=== PATIENT | female | born 1940 | race Caucasian/White ===

== ENCOUNTER 2017-05-30 09:44 | Day surgery (SDC) | payer MEDICARE ==
[2017-05-30] VITALS (9 sets, daily range): BP systolic 121–153; BP diastolic 60–74; PULSE 78–99; RESP 13–16; O2SAT 95–98
[~2017-05-30] VITALS: Ht 156.2 cm; Wt 88.0 kg
[~2017-05-30 09:44] MED LIST: ALPR0.5T8 PO; ATOR20TA PO; AZEL50GE5 TP; CALC-682 PO; CHOL40003 PO; DESO15CR25 TOP; DICL100G8 TOPICAL; GABA-502 PO; HYDR25TA4 PO; INSLIS SUBQ; INSU100V28 SUBQ; KETACONAZOLE CREAM TP; LEVO100T6 PO; LISI-567 PO; Lactated Ringer's 1,000 ML IV SCH; TRAM-14 PO
[2017-05-30] MEDS ORDERED: Dexamethasone 4 mg/mL Inj ONE (09:45)
[2017-05-30] MEDS ORDERED: Ondansetron 2 mg/mL 2 mL Inj ONE (09:45)
[2017-05-30] MEDS ORDERED: fentaNYL-PF 50 mCg/mL 2 mL Inj ONE (09:45)
[2017-05-30] MEDS ORDERED: MetoCLOpramide 5 mg/mL 2 mL Inj ONE (09:45)
[2017-05-30] MEDS ORDERED: Lactated Ringer's 1,000 ML IV ONE (10:46)
--- NOTE | 2017-05-30 11:04 | DRSVH ---
PROCEDURE: NM SENTINEL NODE INJECTION ONLY, RIGHT BREAST RADIOPHARMACEUTICAL: 0.5 mCi Millipore filtered Tc-99m sulfur colloid. INDICATIONS: RIGHT BREAST CANCER PROCEDURE: The indications, alternatives, benefits, risks, and complications of the procedure were explained to the patient. Written informed consent was obtained and placed in the chart. The area around the nip ple was prepped and draped in a sterile fashion. Tc-99m sulfur colloid was injected in the outer edg e of the areola in the right breast. No image was obtained. IMPRESSION: Administration of radiotracer into the right breast periareolar region for intra-operati ve sentinel lymph node localization. Dictated by: Joe Abernathy M.D. on 05/30/2017 at 11:02 Approved by: Joe Abernathy M.D. on 05/30/2017 at 11:02
--- NOTE | 2017-05-30 15:01 | PCM.HPANE ---
Patient Data Date of Service: May 30, 2017 Surgeon Admitting Provider: Attending Provider:Francisco Harris MD Primary Care Physician:Other,Physician Other Provider:Marty Baig Anesthesia Reason for Visit Right Breast Dcis Ht/WT & BMI Height (Feet): 5 Height (Inches): 1.5 Weight (Kilograms): 87.996 Body Mass Index 36.00 Allergies Coded Allergies: No Known Allergies (Unverified , 04/08/17) Past Anesthesia History Anesthesia History: Denies:: Abnormal Airway, Anesthesia Reactions, Difficult Intubation, Fam Anesthesia Reaction, Fam Malignant Hypertherm, Malignant Hyperthermia Diabetes History Hx Diabetes?: Yes Type of Diabetes: Type II Glycemic Control: Insulin Dependent Current Bedside Blood Glucose: 190 MRSA MRSA: No Medications Hypertension Medication: Yes (HCTZ,LISINOPRIL) Home Meds Incl Beta Vijay: No Reported Medications Diclofenac Gel (Voltaren Gel)100 Gm Tube1 Applic TOPICAL QID #1 TUBE 05/24/17 [Ketaconazole Cream] No Conflict Check1 Applic TP BID 2%-MIX W/ DESONIDE 05/24/17 Azelaic Acid (Finacea)50 Gm Gel..gram.1 Applic TP BID 15% 05/24/17 Desonide (Desonide Cream)15 Gm Cream..g.1 Applic TOP BID #1 TUBE Ref 0 0.05%-MIX W/ KETACONAZOLE 05/24/17 Calcium Crb&Cit/D3/Min34/Jerry (Citracal + Bone Density Tablet)1 Each Tablet1 Each PO DAILY 05/24/17 Alprazolam 0.5 Mg Tablet0.5-1 Mg PO DAILY PRN For Anxiety Ref 0 05/24/17 Cholecalciferol (Vitamin D3) (Vitamin D3)4,000 Unit Capsule5,000 Unit PO DAILY 04/08/17 Gabapentin 300 Mg Dkcyvss018-513 Mg PO TID Ref 0 04/08/17 Tramadol (Ultram)50 Mg Unywag03 Mg PO q6hrs PRN Pain Ref 0 04/08/17 Insulin Human Lispro (HumaLOG U100 Insulin Vial)100 Unit/Ml Unit8-15 Unit SUBQ TIDWM Ref 0 Check blood sugars before meals and at bedtime. Use correction factor only before meals. Blood Sugar Lispro Correction: <151, 0 units; 151-175, 1 unit; 176-200, 2 units; 201-225, 3 units; 226-250, 4 units; 251-275, 5 units; 276-300, 6 units; 301-325, 7 units; 326-350, 8 units; 351-375, 9 units; 376-400, 10 units; >400, 12 units. 04/08/17 Insulin Regular, Human (HUMulin-R U100 Insulin Vial)100 Unit/1 Ml Vial26 Unit SUBQ DAILY Ref 0 04/08/17 Lisinopril 20 Mg Bwtyqq05 Mg PO DAILY Ref 0 04/08/17 Levothyroxine 100 Mcg Zfyvxf781 Mcg PO DAILY For Thyroid Replacement Ref 0 04/08/17 Hydrochlorothiazide 25 Mg Ejkboe82 Mg PO DAILY Ref 0 04/08/17 Atorvastatin (Lipitor)20 Mg Wiiuhy09 Mg PO DAILY Ref 0 04/08/17 Discontinued Reported Medications Ranitidine 150 Mg Xsepsyb958 Mg PO prn Ref 0 04/08/17 L.acidoph & Paracasei,B.lactis (Probiotic)10 Billion Cell Capsule1 Each PO DAILY 04/08/17 Cyanocobalamin (Vitamin B-12) (Vitamin B-12)1,000 Mcg Tablet1,000 Mcg PO DAILY 04/08/17 History History of ENT Problems?: No HEENT History: Denies:: Abnormal Airway Difficult Intubation Hearing Problem Sinus Problem Denture Type: None Teeth Condition: Missing Teeth Hx of Heart Problems?: Yes Cardiovascular History: Positive for:: Hypertension (HYPERLIPIDEMIA) Denies:: Chest Pain Heart Murmur Pacemaker Rheumatic Fever Thrombophlebitis Hx of Respiratory Problem?: No Respiratory History: Denies:: Asthma COPD Dyspnea Emphysema Hemoptysis Tuberculosis Use of C-PAP Machine Hx Neurologic Problems?: No Neurological History: Denies:: Alzheimer's Disease CVA Dementia Dizziness Headaches Seizures TIA Hx of GI Problems?: Yes Gastrointestinal History: Positive for:: Gastroesphageal Reflux Hx of Problems?: Yes Genitourinary History: Positive for:: Urinary Tract Infection (HX OF) Denies:: HX of Hemodialysis Kidney Stones Female Hx: Positive for:: Problems with Breasts? (S/P RT BREAST BX RT BREAST CA=CURRENT PROBLEM) Denies:: Currently (+ HRT X 10YRS) Endometriosis Pelvic Inflammatory Skin History: Positive for:: History Skin Disorders? (S/P EXC BASAL CELL CA- FACE) Denies:: Pressure Ulcers Hx Musculoskeletal Problems?: Yes Musculoskeletal History: Positive for:: Fibromyalgia Osteoarthritis Denies:: Back Injury (C/OF LOWER BACK PAIN) Joint Replacement Musculoskeletal Trauma Hx of Psycho/Social Problems?: Yes Psycho Social History: Positive for:: Anxiety Hx Depression Denies:: Bipolar Disorder Hx Surgeries?: No Hx Any Other Health Problems?: Yes Other History: Positive for:: Thyroid Disease Denies:: Cancer Endocrine Disease Hospitalization Hx Diabetes: YesBedside Blood Glucose: 190 Hx Alcohol Use: NoHx Substance Use: No Smoking Status: Unknown if Ever Smoker Have You Smoked inLast 12 mo: No Stop/Bang Treated for Sleep Apnea?: No Do You Have a CPAP Machine?: No S-Snoring: Do You Snore Loudly: No T-Tired: feel tired, fatigued: No O-Obsered: Observed not breath: No P-Blood Pressure: treated: Yes B- Body Mass Index > 35 kg/m2: Yes A- Age over 50: Yes N- Neck Large Circumference: No G- Gender Male: No JOE Total Score: 3 JOE Risk Assessment: Low Risk, <3 Yes Risk Assessment Category Category 1A: Patient has history of documented sleep apnea, and HAS NOT received any narcotic, sedative or anesthesia administration during this stay. Category 1B: Patient has history of documented sleep apnea, and HAS received any narcotic , sedative or anesthesia administration during this stay Category 2: Patient has SUSPECTED Obstructive Sleep Apnea, and HAS received any narcotic , sedative or anesthesia administration during this stay. Category 3: Patient has SUSPECTED Obstructive Sleep Apnea and HAS NOT received narcotic, sedative or anesthesia administration during this stay. Category 4: Outpatient in Procedural Areas with known sleep apnea or who screen positive for High Risk via the STOP/BANG questionnaire. Exam Exam Vital Signs Vital Signs Date Time Temp Pulse Resp B/P Pulse Ox O2 Delivery O2 Flow Rate FiO2 05/30/17 10:37 36.2 78 16 140/74 96 Room Air General Appearance: Alert, Oriented X3, Cooperative HEENT/AIRWAY: MP 3, Neck Movement (FROM, SHORT THICK), Mouth Opening (3), Other (TMD<3) Lungs: Normal Air Movement Heart: Exam Unremarkable, Regular Rate/Rhythm, Normal S1, Normal S2, No Murmurs /Rubs/Gallops Meds/Labs/Diagnostics Admission Meds Current Medications Lactated Ringer's (Lr) 1,000 ml @ ud STK-MED ONCE IV Last administered on 05/30t 10:46; Start 05/30/17 at 10:46; Stop 05/30/17 at 10:47; Status DC Bedside Blood Glucose: 190 Plan Impression Patient chart reviewed, patient interviewed and anesthestic plan with risks, benefits, and alternatives discussed, and informed consent obtained. NPO per Anesth. Guidelines: Yes ASA Physical Status: ASA3 Severe Disease Anesthetic Plan: GA Bene/Risks/Altern/Consents: Yes HP Complete Prior to Induction: Yes Salvatore Guillen MD May 30, 2017 15:01
[2017-05-30] MEDS ORDERED: Bupivacaine-MPF 0.5% W/EPI 30 mL Inj INFILTRATE ONE (15:24)
[2017-05-30] MEDS ORDERED: EPHEDrine Sulfate 50 mg/mL Inj IM PRN (16:05)
[2017-05-30] MEDS ORDERED: hydrOXYzine Inj 50 MG/1 mL SDV IM ONE (16:05)
[2017-05-30] MEDS ORDERED: Dexamethasone 4 mg/mL Inj IVPUSH PRN (16:05)
[2017-05-30] MEDS ORDERED: Ondansetron 2 mg/mL 2 mL Inj IVPUSH PRN (16:05)
[2017-05-30] MEDS ORDERED: Lactated Ringer's 1,000 ML IV SCH (16:05)
[2017-05-30] MEDS ORDERED: EPHEDrine Sulfate 50 mg/mL Inj IVPUSH PRN (16:05)
[2017-05-30] MEDS ORDERED: Lactated Ringer's 500 ML IV PRN (16:05)
[2017-05-30] MEDS ORDERED: MetoCLOpramide 5 mg/mL 2 mL Inj IVPUSH PRN (16:05)
[2017-05-30] MEDS ORDERED: Phenylephrine 10,000 mCg/mL Inj IVPUSH PRN (16:05)
[2017-05-30] MEDS ORDERED: HYDROmorphone 1 mg/mL Inj IVPUSH PRN (16:05)
[2017-05-30] MEDS ORDERED: fentaNYL-PF 50 mCg/mL 2 mL Inj IVPUSH PRN (16:05)
[2017-05-30] MEDS ORDERED: HYDROcodone-APAP 5-325 mg Tablet PO PRN (16:20)
--- NOTE | 2017-05-30 16:20 | PCM.DISURG ---
Surgical Discharge Instruction Date of Service May 30, 2017 Dates of Hospitalization Date of Hospital Admission Providers Admitting Physician: Primary Care Physician: Other,Physician Attending Physician: Francisco Harris MD Discharge Diagnosis Discharge Diagnosis Right breast DCIS Diet Discharge Diet: No restrictions Activity Discharge Activity-General: No restrictions, Activity as pain allows Dressing and Incisional Care Dressing Care: Allow Steri Stripes to fall off, Remove outer dressing after 24 hrs Hygiene: May shower after (24 hours) Follow Up Plan Follow Up Plan With Dr. Harris in surgery clinic in 7-10 days Call your provider for: Fever, Discharge @ incision, pus discharge Francisco Harris MD May 30, 2017 16:20
--- NOTE | 2017-05-30 16:26 | PCM.SURGOP ---
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 On follow-up, those calcifications had increased in number and distribution spanning an area of 2.5 cm. A stereotactic biopsy showed high-grade ductal carcinoma in situ with a possible tiny focus of microinvasion. After discussion of risks and benefits, she agreed to proceed with wire localized right partial mastectomy, right axillary sentinel lymph node biopsy. Findings: The calcifications and clip were successfully localized. There was a single sentinel node, which was grossly normal. The ex vivo gamma count was 4101, compared to a background count of 71. Procedure Details Preoperatively, the patient underwent wire localization in the [facility]. In the preoperative area, she underwent right breast radiotracer injection. She was then brought to the operating room where she underwent smooth induction of general anesthesia with an LMA. She was placed in the supine position with both arms out. There was an excellent radiotracer signal in the right axilla, so methylene blue was not utilized. She was prepped and draped in wide sterile fashion. A procedural pause was performed according to the SCOAP checklist, and all were found to be in agreement. A transverse incision was made in the upper outer quadrant of the right breast, encompassing the wire into the lateral aspect of the incision. Skin flaps were raised superiorly and inferiorly. Dissection was carried down along the wire until the thick portion of the wire was encountered. Then, using the wire as a guide, circumferential dissection was carried out with electrocautery. The wire was not encountered during dissection. The excised tissue was oriented with suture, and a specimen mammograph was obtained. This confirmed the clip and the microcalcifications in the specimen. That tissue was sent for permanent pathology labeled as right breast tissue, upper outer quadrant. The cavity was marked with hemoclips circumferentially. The breast parenchyma was closed with interrupted 3-0 Vicryl sutures in layers. A curvilinear incision was then made in the inferior border of the hairbearing skin in the right axilla. Dissection was carried down with electrocautery until the axillary fascia was incised. Using the gamma probe as a guide, the area of maximum radiotracer activity was identified and dissected free from the surrounding tissues. This corresponded to a single sentinel node. Ex vivo, the sentinel node had a gamma count of 4101. The background count in the right axilla was 71. The right axillary sentinel node was sent for permanent pathology. Hemostasis was adequate. The axillary fascia was closed with an interrupted 3- 0 Vicryl suture. Both skin incisions were closed with running 4-0 Vicryl subcuticular stitches. Steri-Strips and sterile dressings were applied. At the end the case all needle and sponge counts were correct 2. The patient was awakened from anesthesia without difficulty, and taken to the recovery room in satisfactory condition, having tolerated the procedure well. Complications There were no periprocedural complications identified. Surgical Specimen Removed: Yes Specimen sent to Pathology: Yes Surgical Specimen description: Right breast tissue, upper outer quadrant. Right axillary sentinel node. Anesthetic Plan: GA Grafts, Implants: None Output, Estimated Blood Loss: 30 Blood Administration during albarran: No Drains: None Catheters: None copies to: Isaías Hernández MD; Bharat Hernandez MD; Flynn Vargas MD, Joshua D MD May 30, 2017 16:26
--- NOTE | 2017-05-30 17:28 | PCM.ANEP1 ---
Post Anesthesia PACU Phase 1 Assessment Date of Service: May 30, 2017 Vital Signs Vital Signs Date Time Temp Pulse Resp B/P Pulse Ox O2 Delivery O2 Flow Rate FiO2 05/30/17 17:19 92 16 153/67 98 Room Air 05/30/17 17:13 36.3 96 16 151/70 96 Room Air 05/30/17 16:40 93 14 137/60 97 Nasal Cannula 2 05/30/17 16:35 96 13 144/65 97 Nasal Cannula 2 05/30/17 16:30 97 15 146/66 96 Nasal Cannula 3 05/30/17 16:25 36.6 99 14 130/65 96 Nasal Cannula 3 05/30/17 10:37 36.2 78 16 140/74 96 Room Air Anesthetic Administered: GA Level of Alertness: Awake, talking ZUNIGA's with Equal Strength: Yes Pain: No Pain Scale Score: 0 Nausea or Vomiting: No CV Function & Hydration Stable: Yes Airway Device: none in PACU Oxygen Delivery: Nasal Cannula Lungs: Clear to Auscultation Summary 05/30/17 17:19 92 16 153/67 98 Room Air PACU Phase 2 Assessment Complications: No Follow up Care: N/A Patient Instructions Provided: N/A Salvatore Guillen MD May 30, 2017 17:28
== END 2017-05-30 23:59 | disposition home or self-care (01) ==
LOC: SAS 09:44
PROVIDERS: ATTEND Student in an Organized Health Care Education/Training Program
DX: D05.11 Intraductal carcinoma in situ of right breast (principal); I10 Essential (primary) hypertension; E78.5 Hyperlipidemia, unspecified; F41.9 Anxiety disorder, unspecified; E11.65 Type 2 diabetes mellitus with hyperglycemia; K21.9 Gastro-esophageal reflux disease without esophagitis; F32.9 Major depressive disorder, single episode, unspecified; E03.9 Hypothyroidism, unspecified; E66.9 Obesity, unspecified; Z79.4 Long term (current) use of insulin
CPT/HCPCS: 19301; 38525; 38792; 76098; A9541; J1100; J1885; J2250; J2405; J2765; J3010; J7120

== ENCOUNTER → 2017-06-17 | Day surgery (SDC) | payer MEDICARE ==
[2017-06-17] VITALS (11 sets, daily range): BP systolic 101–152; BP diastolic 43–87; PULSE 68–89; RESP 8–21; O2SAT 94–100
[~2017-06-17] VITALS: Ht 157.5 cm; Wt 86.5 kg
[~2017-06-17] MED LIST changes: +Atropine 0.4 mg/mL Inj IVPUSH PRN; +Bupivacaine-MPF 0.5% W/EPI 30 mL Inj INFILTRATE ONE; +Dexamethasone 4 mg/mL Inj ONE; +EPHEDrine Sulfate 50 mg/mL Inj IVPUSH PRN; +HYDROmorphone 1 mg/mL Inj IVPUSH PRN; +Ketorolac 15 mg/mL Inj ONE; +Labetalol 5 mg/mL 4 mL Inj IV PRN; +Lactated Ringer's 1,000 ML IV ONE; +Lactated Ringer's 500 ML IV PRN; +MeTOProlol 1 mg/mL 5 mL Inj ONE; +MetoCLOpramide 5 mg/mL 2 mL Inj IVPUSH PRN; +Ondansetron 2 mg/mL 2 mL Inj IVPUSH PRN; +Ondansetron 2 mg/mL 2 mL Inj ONE; +Phenylephrine 10,000 mCg/mL Inj IVPUSH PRN; +Propofol 10,000 mCg/mL 20 mL Inj ONE; +fentaNYL-PF 50 mCg/mL 2 mL Inj IVPUSH PRN; +fentaNYL-PF 50 mCg/mL 2 mL Inj ONE; +oxyCODONE-Acetamin 5-325 mg Tablet PO PRN
--- NOTE | 2017-06-17 13:49 | PCM.HPANE ---
Patient Data Surgeon Admitting Provider: Attending Provider:Francisco Harris MD Primary Care Physician:Isaías Hernández MD Other Provider:Marty Baig Anesthesia Reason for Visit Right Breast Dcis Ht/WT & BMI Height (Feet): 5 Height (Inches): 2.00 Weight (Kilograms): 86.500 Body Mass Index 35.00 Allergies Coded Allergies: No Known Allergies (Unverified , 06/12/17) Past Anesthesia History Anesthesia History: Denies:: Abnormal Airway, Anesthesia Reactions, Difficult Intubation, Fam Anesthesia Reaction, Fam Malignant Hypertherm, Malignant Hyperthermia Diabetes History Hx Diabetes?: Yes Type of Diabetes: Type II Glycemic Control: Insulin Dependent Current Bedside Blood Glucose: 165 MRSA MRSA: No Medications Home Meds Incl Beta Vijay: No Reported Medications Diclofenac Gel (Voltaren Gel)100 Gm Tube1 Applic TOPICAL QID #1 TUBE 05/24/17 [Ketaconazole Cream] No Conflict Check1 Applic TP BID 2%-MIX W/ DESONIDE 05/24/17 Desonide (Desonide Cream)15 Gm Cream..g.1 Applic TOP BID #1 TUBE Ref 0 0.05%-MIX W/ KETACONAZOLE 05/24/17 Cholecalciferol (Vitamin D3) (Vitamin D3)4,000 Unit Capsule4,000 Unit PO DAILY 04/08/17 Gabapentin 300 Mg Vlfgqll581 Mg PO HS Ref 0 04/08/17 Tramadol (Ultram)50 Mg Exjqjf86 Mg PO q6hrs PRN Pain Ref 0 04/08/17 Insulin Human Lispro (HumaLOG U100 Insulin Vial)100 Unit/Ml Unit5-15 Unit SUBQ TIDWM Ref 0 Check blood sugars before meals and at bedtime. Use correction factor only before meals. Blood Sugar Lispro Correction: <151, 0 units; 151-175, 1 unit; 176-200, 2 units; 201-225, 3 units; 226-250, 4 units; 251-275, 5 units; 276-300, 6 units; 301-325, 7 units; 326-350, 8 units; 351-375, 9 units; 376-400, 10 units; >400, 12 units. 04/08/17 Insulin Regular, Human (HUMulin-R U100 Insulin Vial)100 Unit/1 Ml Vial26 Unit SUBQ BID Ref 0 04/08/17 Lisinopril 20 Mg Husvti92 Mg PO DAILY Ref 0 04/08/17 Levothyroxine 100 Mcg Rickwh976 Mcg PO DAILY For Thyroid Replacement Ref 0 04/08/17 Hydrochlorothiazide 25 Mg Rjnwso61 Mg PO DAILY Ref 0 04/08/17 Atorvastatin (Lipitor)20 Mg Bonrzm44 Mg PO DAILY Ref 0 04/08/17 Discontinued Reported Medications Azelaic Acid (Finacea)50 Gm Gel..gram.1 Applic TP BID PRN rash under breast 15% 05/24/17 Calcium Crb&Cit/D3/Min34/Jerry (Citracal + Bone Density Tablet)1 Each Tablet1 Each PO DAILY 05/24/17 Alprazolam 0.5 Mg Tablet0.5-1 Mg PO DAILY PRN For Anxiety Ref 0 05/24/17 Last Time Dose Received No meds today History History of ENT Problems?: No HEENT History: Denies:: Abnormal Airway Difficult Intubation Hearing Problem Sinus Problem Denture Type: None Teeth Condition: Missing Teeth Other History/Comment The patient has multiple temporary teeth upper teeth (one is just glued in) Hx of Heart Problems?: Yes Cardiovascular History: Positive for:: Hypertension (HYPERLIPIDEMIA) Denies:: Chest Pain Heart Murmur Pacemaker Rheumatic Fever Thrombophlebitis Hx of Respiratory Problem?: No Respiratory History: Denies:: Asthma COPD Dyspnea Emphysema Hemoptysis Tuberculosis Use of C-PAP Machine Hx Neurologic Problems?: No Neurological History: Denies:: Alzheimer's Disease CVA Dementia Dizziness Headaches Multiple Sclerosis Parkinson's Disease Seizures TIA Hx of GI Problems?: Yes Hx of Problems?: Yes Genitourinary History: Positive for:: Urinary Tract Infection (HX OF) Denies:: HX of Hemodialysis Kidney Stones Female Hx: Positive for:: Problems with Breasts? (S/P RT BREAST BX RT BREAST CA=CURRENT PROBLEM) Denies:: Currently Endometriosis Pelvic Inflammatory Skin History: Positive for:: History Skin Disorders? (S/P EXC BASAL CELL CA- FACE) Denies:: Pressure Ulcers Hx Musculoskeletal Problems?: Yes Musculoskeletal History: Denies:: Back Injury (C/OF LOWER BACK PAIN) Degenerative Joint Fibromyalgia Joint Replacement Musculoskeletal Trauma Myasthenia Gravis Osteoarthritis Rheumatoid Arthritis Systemic Lupus Hx of Psycho/Social Problems?: Yes Psycho Social History: Positive for:: Anxiety Hx Depression Denies:: Bipolar Disorder Hx Surgeries?: Yes (Right breast) Hx Any Other Health Problems?: Yes Other History: Positive for:: Cancer (Breast) Thyroid Disease (Levothyroxine) Denies:: Endocrine Disease Hospitalization Hx Diabetes: YesBedside Blood Glucose: 165 Hx Alcohol Use: NoHx Substance Use: No Smoking Status: Unknown if Ever Smoker Have You Smoked inLast 12 mo: No Stop/Bang S-Snoring: Do You Snore Loudly: No T-Tired: feel tired, fatigued: No O-Obsered: Observed not breath: No P-Blood Pressure: treated: Yes B- Body Mass Index > 35 kg/m2: Yes A- Age over 50: Yes N- Neck Large Circumference: No G- Gender Male: No JOE Total Score: 3 Risk Assessment Category Category 1A: Patient has history of documented sleep apnea, and HAS NOT received any narcotic, sedative or anesthesia administration during this stay. Category 1B: Patient has history of documented sleep apnea, and HAS received any narcotic , sedative or anesthesia administration during this stay Category 2: Patient has SUSPECTED Obstructive Sleep Apnea, and HAS received any narcotic , sedative or anesthesia administration during this stay. Category 3: Patient has SUSPECTED Obstructive Sleep Apnea and HAS NOT received narcotic, sedative or anesthesia administration during this stay. Category 4: Outpatient in Procedural Areas with known sleep apnea or who screen positive for High Risk via the STOP/BANG questionnaire. Exam Exam Vital Signs Vital Signs Date Time Temp Pulse Resp B/P Pulse Ox O2 Delivery O2 Flow Rate FiO2 06/17/17 10:17 36.8 77 18 147/60 99 Room Air General Appearance: Alert, Oriented X3 HEENT/AIRWAY: MP 2, Neck Movement (FROM) Lungs: Clear to Auscultation, Clear to Percussion Heart: Exam Unremarkable, Regular Rate/Rhythm Meds/Labs/Diagnostics Admission Meds Current Medications Lactated Ringer's (Lr) 1,000 ml @ 120 mls/hr Q8H20M ONCE IV Last administered on 06/17/17t 10:17; Start 06/17/17 at 05:00; Stop 06/17/17 at 13:19; Status DC Bedside Blood Glucose: 165 Plan Impression Patient chart reviewed, patient interviewed and anesthestic plan with risks, benefits, and alternatives discussed, and informed consent obtained. NPO per Anesth. Guidelines: Yes ASA Physical Status: ASA3 Severe Disease (IDDM; obesity) Anesthetic Plan: GA Bene/Risks/Altern/Consents: Yes HP Complete Prior to Induction: Yes Other Patient understands that I will be as careful with her temporary teeth as possible but that they are at risk of being dislodged Michael Singleton MD Jun 17, 2017 13:32
--- NOTE | 2017-06-17 14:43 | PCM.SURGOP ---
Surgical Operative Report Date of Service: Jun 17, 2017 Pre Operative Diagnosis Right breast DCIS Post Operative Diagnosis Same Procedure: Reexcision of right partial mastectomy Surgeon and Pc Analyst: Surgeon: Francisco Harris MD Assistants: Vimal Randhawa MD PGY-3 Indication for Procedure 76-year-old woman who underwent a wire localized right partial mastectomy on for DCIS. Her final pathology showed a 1.5 cm area of DCIS, high-grade with comedonecrosis. Her medial margin was 1 mm, all other margins were greater than 1 cm. After discussion of risks and benefits, she agreed to proceed with reexcision of right partial mastectomy site. Findings: There was a small to moderate seroma. There was no gross evidence of residual malignancy. Procedure Details After smooth induction of general anesthesia with an LMA, she was placed in the supine position with both arms out, and was prepped and draped in wide sterile fashion. A procedural pause was performed according to the SCOAP checklist, and all were found to be in agreement. Her previous upper outer quadrant right breast incision was reopened sharply. Dissection was carried through the superficial soft tissue until the seroma cavity was encountered and evacuated. There was fairly clear seroma fluid in the space. The medial aspect of the cavity was then reexcised with electrocautery, grasping the medial margin with Hai clamps. The extent of dissection was approximately 1 cm in thickness, covering the entire medial aspect of the cavity. That tissue was oriented with suture, and sent for permanent pathology. The new medial margins of the dissection cavity were marked with hemoclips. Hemostasis was adequate. The breast parenchyma was closed with an interrupted 3-0 Vicryl suture, and the skin was closed with a running 4-0 Vicryl subcuticular stitch. Steri-Strips and sterile dressings were applied. At the end of the case all needle and sponge counts were correct 2. The patient was awakened from anesthesia without difficulty, and taken to the recovery room in satisfactory condition, having tolerated the procedure well. Complications There were no periprocedural complications identified. Surgical Specimen Removed: Yes Specimen sent to Pathology: Yes Surgical Specimen description: Right breast medial margin Anesthetic Plan: GA Grafts, Implants: None Output, Estimated Blood Loss: 10 Blood Administration during albarran: No Drains: None Catheters: None copies to: Isaías Hernández MD; Bharat Hernandez MD; Flynn Vargas MD, Joshua D MD Jun 17, 2017 14:43
--- NOTE | 2017-06-17 14:51 | PCM.DISURG ---
Surgical Discharge Instruction Date of Service Jun 17, 2017 Dates of Hospitalization Date of Hospital Admission Providers Admitting Physician: Primary Care Physician: Isaías Hernández MD Attending Physician: Francisco Harris MD Discharge Diagnosis Post Operative diagnosis Same Diet Discharge Diet: No restrictions Activity Discharge Activity-General: No restrictions, Activity as pain allows, No driving while taking narcotic Dressing and Incisional Care Dressing Care: Allow Steri Stripes to fall off, Remove outer dressing after 24 hrs Hygiene: May shower after (24 hours), DO NOT soak incision under water, NO bathtub, hot tub or whirlpool Follow Up Plan Follow Up Plan Follow up with Dr. Harris in the next several weeks to discuss your pathology. Call at any time with questions or concerns. Call your provider for: Fever, Chills, Wound redness, Increasing wound pain, Discharge @ incision, pus discharge Calderon Randhawa MD Jun 17, 2017 14:51
--- NOTE | 2017-06-17 14:56 | PCM.ANEP1 ---
Post Anesthesia PACU Phase 1 Assessment Vital Signs Vital Signs Date Time Temp Pulse Resp B/P Pulse Ox O2 Delivery O2 Flow Rate FiO2 06/17/17 10:17 36.8 77 18 147/60 99 Room Air Anesthetic Administered: GA Level of Alertness: Awake, talking ZUNIGA's with Equal Strength: No Pain: No Nausea or Vomiting: No CV Function & Hydration Stable: Yes Airway Device: Oxygen Delivery: Simple Mask Lungs: Clear to Auscultation, Clear to Percussion PACU Phase 2 Assessment Complications: No Follow up Care: No Patient Instructions Provided: N/A Comments See anesth record for PACU VS. PACU VSS Michael Singleton MD Jun 17, 2017 14:56
== END | disposition home or self-care (01) ==
LOC: SAS 10:02
PROVIDERS: ATTEND Student in an Organized Health Care Education/Training Program
DX: D05.11 Intraductal carcinoma in situ of right breast (principal); I10 Essential (primary) hypertension; E78.5 Hyperlipidemia, unspecified; E11.9 Type 2 diabetes mellitus without complications; F41.8 Other specified anxiety disorders; Z87.440 Personal history of urinary (tract) infections; Z79.4 Long term (current) use of insulin; Z85.828 Personal history of other malignant neoplasm of skin
CPT/HCPCS: 19301; J1100; J1885; J2405; J3010; J7120